=== PATIENT | male | born 1960 | race Caucasian/White ===

== ENCOUNTER → 2017-06-17 | Outpatient (CLI) | payer BC ==
[2017-06-17 11:05] LABS: ALBUMIN 4.6 g/dL (3.5-5.0); BUN/CREATININE RATIO 18.2 (6.0-26.0); CALCIUM 9.6 mg/dL (8.4-10.2); POTASSIUM 4.3 mmol/L (3.6-5.0); TOTAL BILIRUBIN 1.2 mg/dL (0.2-1.3); TOTAL PROTEIN 7.8 g/dL (6.3-8.2)
== END ==
LOC: LAB 09:50
PROVIDERS: Family Medicine
DX: Z00.00 Encounter for general adult medical examination without abnormal findings (principal); K22.70 Barrett's esophagus without dysplasia; K59.00 Constipation, unspecified; K21.9 Gastro-esophageal reflux disease without esophagitis

== ENCOUNTER → 2017-07-27 | Outpatient (CLI) | payer BC | LOC: CARDLAB 13:30 → CARDREHAB 15:11 → CARDLAB 15:11 | DX: Z13.6 Encounter for screening for cardiovascular disorders (principal) ==

== ENCOUNTER 2018-12-06 22:16 | Emergency (ER) | payer BC ==
[~2018-12-06] VITALS: Ht 182.9 cm; Wt 61.4 kg
[2018-12-06 23:31] LABS: HEMATOCRIT 41.9 % (42.0-52.0); HEMOGLOBIN 14.2 g/dL (13.5-18.0); MEAN CELL VOLUME 85 fl (78-100); MEAN CORPUSCULAR HEMOGLOBIN 29 pg (27-31); MEAN CORPUSCULAR HGB CONC 34 g/dL (33-37); MEAN PLATELET VOLUME 10.5 fl (7.4-10.4); PLATELET COUNT 237 K/mm3 (130-400); RED BLOOD COUNT 4.92 M/mm3 (4.20-5.60); RED CELL DISTRIBUTION WIDTH 12.8 % (11.5-14.5); WHITE BLOOD COUNT 9.5 K/mm3 (4.8-10.8)
[2018-12-06 23:50] LABS: ALBUMIN 4.3 g/dL (3.5-5.0); CALCIUM 9.6 mg/dL (8.4-10.2); POTASSIUM 3.2 mmol/L (3.5-5.1); TOTAL PROTEIN 6.9 g/dL (6.4-8.3)
[2018-12-06 23:51] LABS: NEUTROPHILS 85 % (42-75)
[2018-12-06 23:52] LABS: LYMPHOCYTE 7 % (20-51); MONOCYTE 7 % (3-10)
[2018-12-07] MEDS ORDERED: PRILOSEC OTC20 MG PO (01:07)
[2018-12-07 01:13] LABS: URINE COLOR YELLOW
[2018-12-07 01:18] LABS: PH-URINE 8.5 (5.0 - 8.0); URINE APPEARANCE CLEAR; URINE BILIRUBIN NEGATIVE (NEGATIVE); URINE BLOOD NEGATIVE (NEGATIVE); URINE GLUCOSE NEGATIVE (NEGATIVE); URINE KETONE 1+ (NEGATIVE); URINE LEUKOCYTE ESTERASE NEGATIVE (NEGATIVE); URINE NITRATE NEGATIVE (NEGATIVE); URINE PROTEIN(semi-quant) TRACE mg/dL (NEGATIVE); URINE UROBILINOGEN NORMAL (NORMAL)
[2018-12-07 01:25] LABS: URINE MUCUS PRESENT (NOT PRESENT)
[2018-12-07] MEDS ORDERED: K-TAB20 MEQ PO (01:44)
[2018-12-07 01:48] VITALS: BP 115/76
== END 2018-12-07 01:55 | disposition home or self-care (01) ==
LOC: ED 22:16
PROVIDERS: Nurse Practitioner Family
DX: E87.6 Hypokalemia (principal); R11.0 Nausea; K21.9 Gastro-esophageal reflux disease without esophagitis; K22.70 Barrett's esophagus without dysplasia; R94.39 Abnormal result of other cardiovascular function study
CPT/HCPCS: J2405; J7030

== ENCOUNTER → 2019-08-01 | Day surgery (SDC) | payer BC ==
[~2019-08-01] MED LIST: K-TAB20 MEQ PO; PRILOSEC OTC20 MG PO
== END ==
LOC: MSO 08:07
DX: Z12.11 Encounter for screening for malignant neoplasm of colon (principal); K21.9 Gastro-esophageal reflux disease without esophagitis; K22.70 Barrett's esophagus without dysplasia; Z86.010 Personal history of colon polyps
CPT/HCPCS: 00813; J2704; J3010; J7120

== ENCOUNTER → 2021-10-07 | Outpatient (CLI) | payer BC | LOC: LAB 17:19 | DX: R05.9 Cough, unspecified (principal); R50.9 Fever, unspecified; Z20.822 Contact with and (suspected) exposure to COVID-19 ==

== ENCOUNTER → 2024-08-05 | Day surgery (SDC) | payer BC ==
[~2024-08-05] MED LIST changes: +Lidocaine PF 2% (20 MG/ML) 5 ML VIAL ONE
== END ==
LOC: MSO 07:27
DX: Z12.11 Encounter for screening for malignant neoplasm of colon (principal); K29.50 Unspecified chronic gastritis without bleeding; K21.00 Gastro-esophageal reflux disease with esophagitis, without bleeding; K44.9 Diaphragmatic hernia without obstruction or gangrene; Z85.46 Personal history of malignant neoplasm of prostate; Z87.19 Personal history of other diseases of the digestive system; Z86.0100 Personal history of colon polyps, unspecified
CPT/HCPCS: 00813; J2704; J7120

== ENCOUNTER → 2024-08-26 | Outpatient (CLI) | payer BC ==
[~2024-08-26] MED LIST changes: -Lidocaine PF 2% (20 MG/ML) 5 ML VIAL ONE
== END ==
LOC: RAD 08:07 → MAMMO 08:30
DX: Z13.820 Encounter for screening for osteoporosis (principal); M81.0 Age-related osteoporosis without current pathological fracture